=== PATIENT | male | born 1985 | race Caucasian/White ===

== ENCOUNTER 2018-09-26 05:45 | Inpatient (IN) | payer OTHER ==
[2018-09-26] MEDS ORDERED: MIDAZOLAM 1 MG/ML 2 ML INJ (06:00)
[2018-09-26] MEDS ORDERED: FENTAnyl 50 MCG/ML VIAL ×3 (06:00→10:13)
[2018-09-26] MEDS ORDERED: NEOSTIGMINE 3 MG/3 ML SYRINGE (06:00)
[2018-09-26] MEDS ORDERED: PROPOFOL 20 ML (06:00)
[2018-09-26] MEDS ORDERED: GLYCOPYRROLATE 0.4 MG INJ (06:00)
[2018-09-26] MEDS ORDERED: ROCURONIUM 50 MG INJ (06:00)
[2018-09-26] MEDS ORDERED: LIDOCAINE 2% (SDV) 5 ML INJ (06:00)
[2018-09-26] MEDS ORDERED: DEXAMETHASONE 4 MG/ML 1 ML INJ (06:01)
[2018-09-26] MEDS ORDERED: ONDANSETRON 4 MG INJ (06:01)
[2018-09-26] MEDS ORDERED: SUCCINYLCHOLINE CHLORIDE 100 MG/5 ML SYG IV (06:06)
[2018-09-26] MEDS ORDERED: LACTATED RINGER'S 1,000 ML IV* (06:30)
[2018-09-26] MEDS: POLYMYXIN/BACITRACIN 1L IRRIG (06:46)
[2018-09-26] MEDS: BUPIVACAINE 0.25% (MPF) 30 ML INJ (06:46)
[2018-09-26] MEDS ORDERED: EPHEDrine SULFATE 50 MG/5 ML SYG (07:00)
[2018-09-26] MEDS: CEFAZOLIN 2 GM/50 ML (PMX) 50 ML IVPB (07:06)
[2018-09-26] MEDS ORDERED: LABETALOL HCL 20MG INJ (07:43)
[2018-09-26] MEDS ORDERED: GELATIN SIZE 100 SPONGE (08:00)
[2018-09-26] MEDS ORDERED: THROMBIN 5000 UNIT VIAL (08:00)
[2018-09-26] MEDS ORDERED: DIAZEPAM 5 MG/ML SYG IM (10:00)
[2018-09-26] MEDS ORDERED: NACL 0.9% 3 ML SYG IV (10:00)
[2018-09-26] MEDS ORDERED: TRIMETHOBENZAMIDE 100 MG/ML VIAL IM (10:00)
[2018-09-26] MEDS ORDERED: HYDROCODONE/APAP (5/325) TAB PO (10:00)
[2018-09-26] MEDS ORDERED: NALOXONE (0.4 MG/ML) INJ IV (10:00)
[2018-09-26] MEDS ORDERED: ZOLPIDEM 5 MG TAB PO (10:00)
[2018-09-26] MEDS ORDERED: CEPASTAT LOZENGE MT (10:00)
[2018-09-26] MEDS ORDERED: PROCHLORPERAZINE 10 MG TAB PO (10:00)
[2018-09-26] MEDS ORDERED: HYDROmorphONE 0.2 MG/ML PCA (10:13)
[2018-09-26] MEDS: HYDROmorphONE 0.2 MG/ML PCA IV (10:35)
[2018-09-26] MEDS ORDERED: FENTAnyl 50 MCG/ML VIAL IV (11:00)
[2018-09-26] MEDS: FENTAnyl 50 MCG/ML VIAL IV (11:01)
[2018-09-26] MEDS: DEXTROSE 5%-0.45% NACL 1,000 ML IV ×3 (12:50→23:43)
[2018-09-26] MEDS: CEFAZOLIN 1 GM/50 ML (PMX) 50 ML IVPB ×3 (12:50→23:43)
[2018-09-26] MEDS: ACETAMINOPHEN 325 MG TAB PO ×2 (12:58→20:27)
[2018-09-26] MEDS: RANITIDINE 150 MG TAB PO (20:27)
[2018-09-27] MEDS: DEXTROSE 5%-0.45% NACL 1,000 ML IV ×2 (05:01→15:34)
[2018-09-27] MEDS: CEFAZOLIN 1 GM/50 ML (PMX) 50 ML IVPB (05:13)
[2018-09-27 05:21] LABS: HEMATOCRIT 37.3 % (42.0-52.0); HEMOGLOBIN 13.2 g/dl (14.0-18.0)
[2018-09-27 05:39] LABS: ANION GAP 9 (5-13); BLOOD UREA NITROGEN 11 mg/dl (7-20); CALCIUM 8.9 mg/dl (8.4-10.2); CARBON DIOXIDE 24 mmol/L (21-31); CHLORIDE 107 mmol/L (97-110); CREATININE 0.53 mg/dl (0.61-1.24); Estimated GFR > 60 mL/min (>60); GLUCOSE 134 mg/dl (70-220); POTASSIUM 4.2 mmol/L (3.5-5.1); SODIUM 140 mmol/L (135-144)
[2018-09-27] MEDS ORDERED: BETHANECHOL 25 MG TAB PO (08:00)
[2018-09-27] MEDS: DOCUSATE SODIUM 100 MG CAP PO ×2 (09:03→20:42)
[2018-09-27] MEDS: FERROUS SULFATE (EC) 325 MG TAB PO ×3 (09:04→20:42)
[2018-09-27] MEDS: RANITIDINE 150 MG TAB PO ×2 (09:04→20:42)
[2018-09-27] MEDS: ASCORBIC ACID 500 MG TAB PO ×2 (09:05→20:42)
[2018-09-27] MEDS: BETHANECHOL 25 MG TAB PO (09:10)
[2018-09-27] MEDS: DIAZEPAM 5 MG TAB PO ×3 (09:10→20:42)
[2018-09-27] MEDS: HYDROCODONE/APAP (5/325) TAB PO ×4 (09:54→22:29)
[2018-09-27 15:04] LABS: ADD UMIC NO; UR ASCORBIC ACID NEGATIVE (NEGATIVE); UR BILIRUBIN (Dip) NEGATIVE (NEGATIVE); UR BLOOD (Dip) NEGATIVE (NEGATIVE); UR CLARITY CLEAR (CLEAR); UR COLOR STRAW (YELLOW); UR GLUCOSE (Dip) NEGATIVE (NEGATIVE); UR KETONES (Dip) NEGATIVE (NEGATIVE); UR LEUKOCYTE ESTERASE (Dip) NEGATIVE Leu/ul (NEGATIVE); UR NITRITE (Dip) NEGATIVE (NEGATIVE); UR SPECIFIC GRAVITY (Dip) 1.011 (1.003-1.030); UR TOTAL PROTEIN (Dip) NEGATIVE (NEGATIVE); UR UROBILINOGEN (Dip) NEGATIVE (NEGATIVE)
[2018-09-27] MEDS: DIPHENHYDRAMINE 50 MG CAP PO (17:52)
[2018-09-28] MEDS: DEXTROSE 5%-0.45% NACL 1,000 ML IV ×3 (01:34→21:34)
[2018-09-28] MEDS: HYDROCODONE/APAP (5/325) TAB PO ×5 (02:36→21:00)
[2018-09-28] MEDS: DOCUSATE SODIUM 100 MG CAP PO ×2 (08:31→20:59)
[2018-09-28] MEDS: FERROUS SULFATE (EC) 325 MG TAB PO ×3 (08:31→20:59)
[2018-09-28] MEDS: RANITIDINE 150 MG TAB PO ×2 (08:31→21:00)
[2018-09-28] MEDS: ASCORBIC ACID 500 MG TAB PO ×2 (08:32→20:59)
[2018-09-28] MEDS: ONDANSETRON 4 MG INJ IV (09:59)
[2018-09-28] MEDS: AL HYDROX/MG HYDROX/SIMETH 30 ML CUP PO (13:11)
[2018-09-29] MEDS: HYDROCODONE/APAP (5/325) TAB PO ×3 (01:50→14:52)
[2018-09-29] MEDS: AL HYDROX/MG HYDROX/SIMETH 30 ML CUP PO (05:17)
[2018-09-29] MEDS: ACETAMINOPHEN 325 MG TAB PO (05:17)
[2018-09-29] MEDS: DEXTROSE 5%-0.45% NACL 1,000 ML IV (05:39)
[2018-09-29] MEDS: ASCORBIC ACID 500 MG TAB PO (08:45)
[2018-09-29] MEDS: FERROUS SULFATE (EC) 325 MG TAB PO ×2 (08:45→14:52)
[2018-09-29] MEDS: DOCUSATE SODIUM 100 MG CAP PO (08:45)
[2018-09-29] MEDS: RANITIDINE 150 MG TAB PO (08:45)
== END 2018-09-29 15:30 | disposition home or self-care (01) | DRG 520 ==
LOC: REC 05:45 → MS1 10:38
PROC: 01NB0ZZ Release Lumbar Nerve, Open Approach (ICD-10-PCS; principal; 2018-09-26 07:00)
PROC: 0SB20ZZ Excision of Lumbar Vertebral Disc, Open Approach (ICD-10-PCS; 2018-09-26 07:00)
PROC: 00BY0ZX Excision of Lumbar Spinal Cord, Open Approach, Diagnostic (ICD-10-PCS; 2018-09-26 07:00)
DX: M51.26 Other intervertebral disc displacement, lumbar region (principal); E88.2 Lipomatosis, not elsewhere classified
CPT/HCPCS: 72020; 80048; 81003; 85014; 85018; 86850; 86900; 86901; 86920; 87086; 88304; 88311; 97110; 97116; 97161; 97530